=== PATIENT | female | born 1950 | race Caucasian/White ===

== ENCOUNTER → 2016-11-27 | Outpatient (REF) | payer MEDICARE, OTHER, BC ==
[~2016-11-27] MED LIST: /AMLO25TA PO; /BENA20TA PO; /BUSP5TA PO; /CLON1TA PO; /MELO7TA PO; ACET50TA PO; ACET65TA OR; ACET65TA PO; ATEN50TA2 PO; BUSP10TA PO; CATA0.1T PO; CEPH500C PO; CLAR10CA3 PO; CLARITAN PO; CLEO300C PO; CLIN300C PO; COLA50CA3 PO; EUCECRE2 TOP; FLON0.05; KEFL500C OR; LEVO75TA3 PO; LEVOTHROID PO; LOTR10CA2 PO; LOTREL PO; MELOPOW PO; MOME50SP; MULTTAB4 PO; NASONEX INH; NYSTATIN TD; PRIL40CA PO; TRIAMCINOLONE TD; TYLENOL PO; VIACTIV PO; VIT D 2000 PO; VITAD1000T PO; [UNRECOGNIZED DRUG - OTHER] PO; potassium PO
[2016-11-27 12:11] LABS: MEAN CORPUSCULAR HEMOGLOBIN 28.8 pg (27.0-33.0); MEAN CORPUSCULAR HGB CONC 34.4 g/dl (32.0-36.5); MEAN CORPUSCULAR VOLUME 83.5 fl (80.0-96.0); RED CELL DISTRIBUTION WIDTH 14.1 % (11.5-14.5); WHITE BLOOD COUNT 5.8 K/mm3 (4.0-10.0)
[2016-11-27 12:34] LABS: ALBUMIN 3.7 GM/DL (3.2-5.2); ALBUMIN/GLOBULIN RATIO 1.42 (1.00-1.93); BILIRUBIN,TOTAL 0.5 MG/DL (0.2-1.0); CREATININE FOR GFR 1.05 MG/DL (0.55-1.02); FREE T4 1.21 NG/DL (0.76-1.46); GLOMERULAR FILTRATION RATE 56.2 (>45); POTASSIUM SERUM 4.4 MEQ/L (3.5-5.1); TOTAL PROTEIN 6.3 GM/DL (6.4-8.2)
== END ==
LOC: M SFHCPLAZ 09:04
PROVIDERS: ATTEND Family Medicine
DX: Z95.2 Presence of prosthetic heart valve (principal); R73.03 Prediabetes; E03.9 Hypothyroidism, unspecified; E78.2 Mixed hyperlipidemia; E55.9 Vitamin D deficiency, unspecified; E53.8 Deficiency of other specified B group vitamins
CPT/HCPCS: 36415; 80053; 80061; 82306; 82607; 83036; 84439; 84443; 85027; G0463

== ENCOUNTER → 2017-03-30 | Outpatient (REF) | payer MEDICARE, OTHER, BC ==
[2017-03-30 13:21] LABS: CALCIUM LEVEL 10.2 MG/DL (8.8-10.2); CREATININE FOR GFR 1.11 MG/DL (0.55-1.02); GLOMERULAR FILTRATION RATE 52.7 (>45); POTASSIUM SERUM 4.2 MEQ/L (3.5-5.1)
== END ==
LOC: M SFHCADAM 10:45
PROVIDERS: ATTEND Family Medicine
DX: E11.9 Type 2 diabetes mellitus without complications (principal)

== ENCOUNTER → 2017-05-03 | Outpatient (CLI) | payer MEDICARE, OTHER, BC ==
--- NOTE | 2017-05-03 12:09 | REP ---
BILATERAL SCREENING DIGITAL MAMMOGRAM: The patient has a history of left breast lumpectomy positive for carcinoma and was treated with chemoradiation. There are no palpable abnormalities or other breast complaints. The patient states she/he had a clinical breast exam in December 26, 2016. Comparison is 04/17/2012. The breast parenchyma is mildly dense, unchanged. There is a chronic stable surgical scar laterally in the left breast, unchanged. There are benign calcifications. There has been no interval development of masses, areas of structural distortion or clusters of microcalcifications typical of malignancy. IMPRESSION: There is no evidence of malignancy. BIRADS category 2 benign findings. The patient should have a repeat mammogram in 1 year. This mammogram was interpreted with the aid of an FDA-approved computer-aided detection system. A. Negative x-ray reports should not delay biopsy if a dominant or clinically suspicious mass is present. B. Not all breast cancers are not identified by x-ray. C. Adenosis and dense breasts may obscure an underlying neoplasm. The patient letter M1. Signed by Jay Andrews MD 05/03/2017 02:41 P
== END ==
LOC: M RAD 11:01
PROVIDERS: ATTEND Obstetrics & Gynecology
DX: Z12.31 Encounter for screening mammogram for malignant neoplasm of breast (principal); Z85.3 Personal history of malignant neoplasm of breast; Z92.3 Personal history of irradiation

== ENCOUNTER → 2017-09-18 | Outpatient (REF) | payer MEDICARE, OTHER, BC | LOC: M LAB REF 16:26 | DX: C44.629 Squamous cell carcinoma of skin of left upper limb, including shoulder (principal) | CPT/HCPCS: 88305 ==

== ENCOUNTER → 2017-12-06 | Outpatient (REF) | payer MEDICARE, OTHER, BC ==
[2017-12-06 13:23] LABS: HEMATOCRIT 38.3 % (36.0-47.0); HEMOGLOBIN 12.3 g/dl (12.0-15.5); MEAN CORPUSCULAR HEMOGLOBIN 26.9 pg (27.0-33.0); MEAN CORPUSCULAR HGB CONC 32.1 g/dl (32.0-36.5); MEAN CORPUSCULAR VOLUME 83.8 fl (80.0-96.0); PLATELET COUNT, AUTOMATED 216 10^3/uL (150-450); RED BLOOD COUNT 4.57 10^6/uL (4.00-5.40); RED CELL DISTRIBUTION WIDTH 14.2 % (11.5-14.5)
[2017-12-06 13:51] LABS: ALBUMIN 3.9 GM/DL (3.2-5.2); ALBUMIN/GLOBULIN RATIO 1.39 (1.00-1.93); ALKALINE PHOSPHATASE 76 U/L (45-117); ALT/SGPT 25 U/L (12-78); ANION GAP 6 MEQ/L (8-16); AST/SGOT 22 U/L (7-37); BILIRUBIN,TOTAL 0.6 MG/DL (0.2-1.0); BLOOD UREA NITROGEN 14 MG/DL (7-18); CALCIUM LEVEL 9.7 MG/DL (8.8-10.2); CARBON DIOXIDE LEVEL 30 MEQ/L (21-32); CHLORIDE LEVEL 108 MEQ/L (98-107); CHOLESTEROL LEVEL 130 MG/DL (<200); CHOLESTEROL RISK RATIO 2.765 (<5); CREATININE FOR GFR 0.99 MG/DL (0.55-1.30); FREE T4 1.13 NG/DL (0.76-1.46); GLOMERULAR FILTRATION RATE 59.9 (>45); GLUCOSE, FASTING 78 MG/DL (70-100); HDL CHOLESTEROL 47 MG/DL (>40); NON-HDL-C 83 MG/DL; POTASSIUM SERUM 3.9 MEQ/L (3.5-5.1); SODIUM LEVEL 144 MEQ/L (136-145); TOTAL PROTEIN 6.7 GM/DL (6.4-8.2); TRIGLYCERIDES LEVEL 120 MG/DL (<150)
[2017-12-06 14:37] LABS: ESTIMATED AVERAGE GLUCOSE 117 MG/DL (60-110); HEMOGLOBIN A1c 5.7 %
== END ==
LOC: M SFHCADAM 12:31
DX: E03.9 Hypothyroidism, unspecified (principal); G25.81 Restless legs syndrome; E11.9 Type 2 diabetes mellitus without complications
CPT/HCPCS: 84443

== ENCOUNTER → 2018-11-25 | Outpatient (CLI) | payer MEDICARE, BC, OTHER ==
[~2018-11-25] MED LIST changes: -/AMLO25TA PO; -/BENA20TA PO; -/CLON1TA PO; -/MELO7TA PO; -ACET50TA PO; +CLON-412 PO; +LOTE1TAB PO; +MAPA500T17 PO; +MOBI4TAB PO; +NORV2TAB PO
[2018-11-25 19:05] LABS: HEMATOCRIT 39.7 % (36.0-47.0); HEMOGLOBIN 12.8 g/dl (12.0-15.5); MEAN CORPUSCULAR HEMOGLOBIN 27.6 pg (27.0-33.0); MEAN CORPUSCULAR HGB CONC 32.2 g/dl (32.0-36.5); MEAN CORPUSCULAR VOLUME 85.6 fl (80.0-96.0); PLATELET COUNT, AUTOMATED 217 10^3/uL (150-450); RED BLOOD COUNT 4.64 10^6/uL (4.00-5.40); WHITE BLOOD COUNT 6.3 10^3/uL (4.0-10.0)
[2018-11-25 20:03] LABS: ALBUMIN 4.1 GM/DL (3.2-5.2); ALT/SGPT 18 U/L (12-78); BILIRUBIN,TOTAL 0.6 MG/DL (0.2-1.0); BLOOD UREA NITROGEN 22 MG/DL (7-18); CALCIUM LEVEL 10.2 MG/DL (8.8-10.2); CARBON DIOXIDE LEVEL 31 MEQ/L (21-32); CHLORIDE LEVEL 106 MEQ/L (98-107); CHOLESTEROL LEVEL 135 MG/DL (<200); CHOLESTEROL RISK RATIO 2.812 (<5); CREATININE FOR GFR 0.97 MG/DL (0.55-1.30); FREE T4 1.28 NG/DL (0.76-1.46); GLOMERULAR FILTRATION RATE > 60.0 (>45); GLUCOSE, FASTING 94 MG/DL (70-100); HDL CHOLESTEROL 48 MG/DL (>40); LDL CHOLESTEROL 59 MG/DL (<100); NON-HDL-C 87 MG/DL; POTASSIUM SERUM 4.4 MEQ/L (3.5-5.1); SODIUM LEVEL 141 MEQ/L (136-145); THYROID STIMULATING HORMONE 0.854 uIU/ML (0.358-3.740); TOTAL PROTEIN 6.5 GM/DL (6.4-8.2); TRIGLYCERIDES LEVEL 142 MG/DL (<150)
[2018-11-25 21:37] LABS: HEMOGLOBIN A1c 5.8 %
== END ==
LOC: M SMT 11:39
PROVIDERS: ATTEND Family Medicine
DX: I33.0 Acute and subacute infective endocarditis (principal); E78.2 Mixed hyperlipidemia; E03.9 Hypothyroidism, unspecified; E11.9 Type 2 diabetes mellitus without complications
CPT/HCPCS: 36415; 80053; 80061; 83036; 84439; 84443; 85027; G0463

== ENCOUNTER → 2019-03-11 | Outpatient (REF) | payer MEDICARE, BC, OTHER ==
[2019-03-11 19:42] LABS: APPEARANCE, URINE CLOUDY (CLEAR); BACTERIA, URINE AUTO NEGATIVE (NEGATIVE); BILIRUBIN, URINE AUTO NEGATIVE (NEGATIVE); BLOOD, URINE BLOOD 2+ (NEGATIVE); COLOR, URINE AMBER (YELLOW); GLUCOSE, URINE (UA) AUTO NEGATIVE (NEGATIVE); KETONE, URINE AUTO NEGATIVE (NEGATIVE); LEUKOCYTE ESTERASE, URINE AUTO 3+ (NEGATIVE); MUCUS, URINE SMALL (NEGATIVE); NITRITE, URINE AUTO NEGATIVE (NEGATIVE); PROTEIN, URINE AUTO 2+ mg/dL (NEGATIVE); RBC, URINE AUTO 34 /HPF (0-3); SPECIFIC GRAVITY URINE AUTO 1.019 (1.002-1.035); SQUAMOUS EPITHELIAL CELL UR AU 2 /HPF (0-6); TRANSITIONAL EPITHELIAL AUTO 1 /HPF; UROBILINOGEN, URINE AUTO 0.2 mg/dL (0.0-2.0); WBC, URINE AUTO TNTC /HPF (0-3)
== END ==
LOC: M LAB REF 17:17
PROVIDERS: ATTEND Obstetrics & Gynecology
DX: N39.0 Urinary tract infection, site not specified (principal)

== ENCOUNTER → 2019-03-19 | Outpatient (REF) | payer MEDICARE, BC, OTHER ==
[2019-03-19 13:40] LABS: APPEARANCE, URINE HAZY (CLEAR); BACTERIA, URINE AUTO NEGATIVE (NEGATIVE); BILIRUBIN, URINE AUTO NEGATIVE (NEGATIVE); BLOOD, URINE BLOOD NEGATIVE (NEGATIVE); COLOR, URINE YELLOW (YELLOW); GLUCOSE, URINE (UA) AUTO NEGATIVE (NEGATIVE); KETONE, URINE AUTO NEGATIVE (NEGATIVE); LEUKOCYTE ESTERASE, URINE AUTO TRACE (NEGATIVE); MUCUS, URINE SMALL (NEGATIVE); NITRITE, URINE AUTO NEGATIVE (NEGATIVE); PROTEIN, URINE AUTO NEGATIVE (NEGATIVE); RBC, URINE AUTO 1 /HPF (0-3); SPECIFIC GRAVITY URINE AUTO 1.016 (1.002-1.035); SQUAMOUS EPITHELIAL CELL UR AU 2 /HPF (0-6); UROBILINOGEN, URINE AUTO 0.2 mg/dL (0.0-2.0); WBC, URINE AUTO 7 /HPF (0-3)
== END ==
LOC: M LAB REF 12:34
PROVIDERS: ATTEND Obstetrics & Gynecology
DX: N39.0 Urinary tract infection, site not specified (principal); N30.01 Acute cystitis with hematuria

== ENCOUNTER 2019-04-03 15:42 | Observation (INO) | payer MEDICARE, BC, OTHER ==
[~2019-04-03] VITALS: Ht 160 cm; Wt 95.5 kg
[2019-04-03] MEDS: busPIRone 5 MG TAB PO SCH ×2 (09:00→23:23)
[2019-04-03 16:37] LABS: BASO % 0.5 % (0.0-1.0); EOS # 0.1 10^3/uL (0.0-0.5); EOS % 1.6 % (0.0-3.0); HEMATOCRIT 35.7 % (36.0-47.0); HEMOGLOBIN 11.5 g/dl (12.0-15.5); LYMPH # 0.8 10^3/uL (1.5-5.0); LYMPH % 13.9 % (24.0-44.0); MEAN CORPUSCULAR HEMOGLOBIN 26.9 pg (27.0-33.0); MEAN CORPUSCULAR HGB CONC 32.2 g/dl (32.0-36.5); MEAN CORPUSCULAR VOLUME 83.6 fl (80.0-96.0); MONO # 0.8 10^3/uL (0.0-0.8); MONO % 14.1 % (0.0-5.0); NEUTROPHILS % 69.6 % (36.0-66.0); PLATELET COUNT, AUTOMATED 138 10^3/uL (150-450); RED BLOOD COUNT 4.27 10^6/uL (4.00-5.40); WHITE BLOOD COUNT 5.8 10^3/uL (4.0-10.0)
[2019-04-03 16:57] LABS: BLOOD UREA NITROGEN 13 MG/DL (7-18); CALCIUM LEVEL 9.8 MG/DL (8.8-10.2); CARBON DIOXIDE LEVEL 28 MEQ/L (21-32); CHLORIDE LEVEL 101 MEQ/L (98-107); CREATININE FOR GFR 0.86 MG/DL (0.55-1.30); GLOMERULAR FILTRATION RATE > 60.0 (>45); GLUCOSE, FASTING 98 MG/DL (70-100); POTASSIUM SERUM 4.1 MEQ/L (3.5-5.1); SODIUM LEVEL 138 MEQ/L (136-145)
[2019-04-03 16:59] LABS: ERYTHROCYTE SEDIMENTATION RATE 65 mm/hr (0-30)
[2019-04-03] MEDS ORDERED: HYDR-3713 PO (17:38)
[2019-04-03] MEDS ORDERED: INDA125TA PO (17:38)
[2019-04-03] MEDS ORDERED: PRESCAP PO (17:38)
[2019-04-03] MEDS ORDERED: ASPI81CH10 (17:38)
[2019-04-03] MEDS ORDERED: VICT18IN2 SC (17:38)
[2019-04-03] MEDS ORDERED: ATOR1TAB21 PO (17:38)
[2019-04-03] MEDS ORDERED: NS 1,000 ML IV ONE (18:00)
[2019-04-03] MEDS ORDERED: MORPHINE 4 MG/ML 1ML VIAL/SYRINGE (J2270) IV ONE (18:00)
[2019-04-03] MEDS ORDERED: ISOVUE-370 76% 100ML VIAL (Q9967) As Ordered ONE (18:06)
--- NOTE | 2019-04-03 20:01 | REPVR ---
PROCEDURE INFORMATION: Exam: CT Left Lower Extremity With Contrast, Ankle Exam date and time: 04/03/2019 7:17 PM Clinical history: 68 years old, female; Condition or disease; Other: Cellulitis; Additional info: Cellulitis, worsening after po abx, cant wb TECHNIQUE: Imaging protocol: CT of the Left lower extremity with intravenous contrast was performed. Exam focused on the ankle. Radiation optimization: All CT scans at this facility use at least one of these dose optimization techniques: automated exposure control; mA and/or kV adjustment per patient size (includes targeted exams where dose is matched to clinical indication); or iterative reconstruction. Contrast material: ISOVUE 370; Contrast volume: 100 ml; Contrast route: IV; COMPARISON: No relevant prior studies available. FINDINGS: Bones/joints: Normal. No acute fracture or dislocation. Soft tissues: Diffuse subcutaneous edema most pronounced laterally at the distal lower leg, ankle, and foot associated with some skin thickening, findings which may indicate the presence of cellulitis. No focal abscess demonstrated. IMPRESSION: Diffuse subcutaneous edema most pronounced laterally at the distal lower leg, ankle, and foot associated with some skin thickening, findings which may indicate the presence of cellulitis. No focal abscess demonstrated. Electronically signed by: Walker Lee On 04/03/2019 20:01:55 PM
--- NOTE | 2019-04-03 20:05 | REPVR ---
PROCEDURE INFORMATION: Exam: CT Left Lower Extremity With Contrast, Foot Exam date and time: 04/03/2019 7:17 PM Clinical history: 68 years old, female; Condition or disease; Other: Cellulitis; Additional info: Cellulitis, worsening after po abx, cant wb TECHNIQUE: Imaging protocol: CT of the Left lower extremity with intravenous contrast was performed. Exam focused on the foot. Radiation optimization: All CT scans at this facility use at least one of these dose optimization techniques: automated exposure control; mA and/or kV adjustment per patient size (includes targeted exams where dose is matched to clinical indication); or iterative reconstruction. Contrast material: ISOVUE 370; Contrast volume: 100 ml; Contrast route: IV; COMPARISON: No relevant prior studies available. FINDINGS: Bones/joints: Degenerative arthropathy of the midfoot with cystic changes demonstrated in the proximal metatarsals, medial, intermediate, and lateral cuneiforms. Marked degenerative changes in the first metatarsal phalangeal joint. Status post ORIF distal portion of the first metatarsal. Degenerative changes in the interphalangeal joints. Soft tissues: Diffuse soft tissue edema demonstrated in the foot with skin thickening consistent with cellulitis. No focal abscess demonstrated. IMPRESSION: Diffuse soft tissue edema demonstrated in the foot with skin thickening consistent with cellulitis. No focal abscess demonstrated. Electronically signed by: Walker Lee On 04/03/2019 20:05:04 PM
[2019-04-03] MEDS ORDERED: ceFAZolin SOD 1 GM in D5W MINI-BAG PLUS 50 ML IV ONE (20:45)
--- NOTE | 2019-04-03 20:54 | HPEPDOC ---
[facility] Medical History & Physical Date of Admission Apr 03, 2019 Date of Service: Apr 03, 2019 Primary Care Physician: Endy Garcia MD Attending Physician: Endy Garcia MD History and Physical TIME OF SERVICE: 9:05 PM CHIEF COMPLAINT: Left ankle pain HISTORY OF PRESENT ILLNESS: This is a 68 old female who reports being "bitten by something" on her right ankle about 5 days ago. Two days later she developed a fever with a temperature of 100.3 and went to [facility]. She received Rocephin, had an ultrasound that ruled out DVT and x-rays that were unremarkable. She was sent home with clindamycin but returned the next day because she had problems walking; shortly thereafter, she was sent home again. Today she presented to because of worsening left ankle redness, pain and swelling. She reports having difficulties going up and down her stairs despite trying to use her father's cane. She has lymphedema affecting the arm and has problems using crutches. 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 HOME MEDICATIONS: Please see below. PHYSICAL EXAMINATION: VITAL SIGNS: Please see below. GENERAL APPEARANCE: Well-nourished, well-developed, not in apparent distress HEENT: Normocephalic, atraumatic, mucous members moist and pink CARDIOVASCULAR: Regular rate and rhythm. No murmurs, rubs or gallops. Radial pulses are intact LUNGS: Clear auscultation bilaterally on room air ABDOMEN: Soft and nontender on palpation. Bowel sounds are present MUSCULOSKELETAL: Range of motion is intact in all 4 extremities except for left ankle were range of motion is limited due to swelling INTEGUMENT: Lateral aspect of right ankle is read the ankle is swollen and tender on palpation. NEUROLOGICAL: Cranial nerves II-12 are grossly intact. Speech is not dysarthric PSYCHIATRIC: Alert and oriented to person, place and time, able to understand and follow commands LABORATORY DATA: See below. IMAGING: CT of the left foot "IMPRESSION: Diffuse soft tissue edema demonstrated in the foot with skin thickening consistent with cellulitis. No focal abscess demonstrated. CT of the left ankle "IMPRESSION: Diffuse subcutaneous edema most pronounced laterally at the distal lower leg, ankle, and foot associated with some skin thickening, findings which may indicate the presence of cellulitis. No focal abscess demonstrated." MICROBIOLOGY: Please see below. ASSESSMENT: Ms. Almodovar is a 68 old female with a PMH of breast cancer, chronic lymphedema, history of bacterial endocarditis, hypothyroidism, and history of mitral valve repair, who will be admitted for treatment of left ankle cellulitis because she is unable to walk. PLAN: 1. Left Ankle Cellulitis Predisposing factor includes obesity WBC # wnl ESR and CRP are elevated The only SIRS criteria she has is a fever. Per d/w ED provider US done at [facility] was negative for DVT CT of the ankle and foot were negative for abscess, but confirmed the presence of findings consistent with cellulitis Plan: admit to [facility] bc the patient has difficulties ambulating / fall precautions / PT eval to determine if she needs a walking aide / c/w Cefazoline ( antibiotic day #2) 2. Diabetes Patient reports her previous A1c was around 6.8. Per chart review, A1c was 5.8 in November of this year Plan: diabetic diet / f/u accuchecks AC & HS / continue Victoza 3. Hypothyroidism Plan: Continue home meds 4.Obesity - if BMI >35 + DM = candidate for bariatric surgery Plan: can f/u w PCP for STOP BANG questionnaire marketing intelligence manager consult & referral for Bariatric surgery / recommend cardiovascular exercise for 40 min 4-5 days a week once able to walk DVT prophylaxis Lovenox. Disposition pending clinical course Vital Signs Vital Signs Date Time Temp Pulse Resp B/P (MAP) Pulse Ox O2 Delivery O2 Flow Rate FiO2 04/03/19 19:36 18 04/03/19 17:00 04/03/19 16:52 99.4 04/03/19 15:42 89 98 Room Air Laboratory Data Labs 24H Laboratory Tests 2 04/03/19 16:27: Immature Granulocyte % (Auto) 0.3, White Blood Count 5.8, Red Blood Count 4.27, Hemoglobin 11.5L, Hematocrit 35.7L, Mean Corpuscular Volume 83.6, Mean Corpuscular Hemoglobin 26.9L, Mean Corpuscular Hemoglobin Concent 32.2, Red Cell Distribution Width 14.3, Platelet Count 138L, Neutrophils (%) (Auto) 69.6H, Lymphocytes (%) (Auto) 13.9L, Monocytes (%) (Auto) 14.1H, Eosinophils (%) (Auto) 1.6, Basophils (%) (Auto) 0.5, Neutrophils # (Auto) 4.0, Lymphocytes # (Auto) 0.8L, Monocytes # (Auto) 0.8, Eosinophils # (Auto) 0.1, Basophils # (Auto) 0.0, Nucleated Red Blood Cells % (auto) 0.0, Erythrocyte Sedimentation Rate 65H, Anion Gap 9, Glomerular Filtration Rate > 60.0, Blood Urea Nitrogen 13, Creatinine 0.86, Sodium Level 138, Potassium Level 4.1, Chloride Level 101, Carbon Dioxide Level 28, Calcium Level 9.8, C-Reactive Protein, Quantitative 17.30H CBC/BMP Laboratory Tests 04/03/19 16:27 Red Blood Count 4.27, Mean Corpuscular Volume 83.6, Mean Corpuscular Hemoglobin 26.9 L, Mean Corpuscular Hemoglobin Concent 32.2, Red Cell Distribution Width 14.3, Neutrophils (%) (Auto) 69.6 H, Lymphocytes (%) (Auto) 13.9 L, Monocytes (%) (Auto) 14.1 H, Eosinophils (%) (Auto) 1.6, Basophils (%) (Auto) 0.5, Neutrophils # (Auto) 4.0, Lymphocytes # (Auto) 0.8 L, Monocytes # (Auto) 0.8, Eosinophils # (Auto) 0.1, Basophils # (Auto) 0.0, Calcium Level 9.8 Microbiology Microbiology 04/03/19 Blood Culture, Received Pending 04/03/19 Blood Culture, Received Pending 04/03/19 Blood Culture, Received Pending Home Medications Scheduled Aspirin (Aspir 81) 81 Mg Tablet.dr, 81 MG PO QHS Atorvastatin Calcium (Atorvastatin Calcium) 20 Mg Tablet, 20 MG PO DAILY Buspirone HCl (Buspirone HCl) 5 Mg Tablet, 5 MG PO BID Cholecalciferol (Vitamin D3) (Vitamin D3) 1,000 Unit Capsule, 2,000 UNIT PO DAILY Clindamycin HCl (Clindamycin HCl) 300 Mg Capsule, 300 MG PO QID DAY 2 OF 10 DAY COURSE Cyanocobalamin (Vitamin B-12) (Vitamin B-12) 1,000 Mcg Capsule, 1,000 MCG PO DAILY Fluticasone Propionate (Fluticasone Propionate) 16 Gm [place].susp, 2 SPRAY NARES DAILY Indapamide (Indapamide) 1.25 Mg Tablet, 1.25 MG PO QHS Levothyroxine Sodium (Synthroid) 75 Mcg Tablet, 75 MCG PO DAILY Liraglutide (Victoza 3-Travis) 0.6 Mg/0.1 Ml Pen.injctr, 1.2 MG SC DAILY Omeprazole (Omeprazole) 40 Mg Capsule.dr, 40 MG PO BID Vit A/Vit C/Vit E/Zinc/Copper (Preservision Areds Softgel) 1 Each Capsule, 1 CAP PO BID Scheduled PRN Hydrocodone/Acetaminophen (Hydrocodone-Acetamin 5-325 mg) 1 Each Tablet, 1 TAB PO Q6H PRN for PAIN Allergies Coded Allergies: Sulfa (Sulfonamide Antibiotics) (Verified Allergy, Intermediate, HIVES, 04/03/19) A-FIB/CHADSVASC A-FIB History Current/History of A-Fib/PAF?: No Current PO Anticoag Therapy: No AMRK VELASQUEZ MD Apr 03, 2019 20:54
[2019-04-03] MEDS: INDAPAMIDE 1.25MG TABLET PO SCH (21:00)
[2019-04-03] MEDS ORDERED: CLIN300C5 PO (21:38)
[2019-04-03] MEDS ORDERED: SYNT75TA PO (21:38)
[2019-04-03] MEDS ORDERED: BUSP5TA PO (21:38)
[2019-04-03] MEDS ORDERED: FLUTISP NARES (21:38)
[2019-04-03] MEDS ORDERED: OMEP-221 PO (21:38)
[2019-04-03] MEDS ORDERED: D3 H10002 PO (21:38)
[2019-04-03] MEDS ORDERED: ASPI81TA85 PO (21:38)
[2019-04-03] MEDS ORDERED: B-12100010 PO (21:41)
[2019-04-03] MEDS ORDERED: IBUPROFEN 800 MG TAB PO ONE (22:15)
[2019-04-03] MEDS ORDERED: LIDOCAINE 4% CREAM 5GM (LMX4) TOP PRN (22:15)
[2019-04-03] MEDS: ASPIRIN 81 MG ENTERIC TAB PO SCH (23:22)
[2019-04-03] MEDS: OCUVITE 1 TAB PO SCH (23:23)
[2019-04-03] MEDS: PANTOPRAZOLE 40MG TAB (PROTONIX) PO SCH (23:23)
[2019-04-03] MEDS: NORCO, ANEXSIA 5/325MG TABLET (HYDROcodone/ACETAMINOPHEN) PO PRN (23:26)
[2019-04-03 23:44] VITALS: BP 159/85
--- NOTE | 2019-04-04 00:10 | ECGEPIP ---
[facility] - ED Test Date: 2019-04-03 Pat Name: UJAN NUGENT Department: Room: - Gender: Female [employer] Attendant: jhonny : [id number] Requested By: MARTHA Yeboah PA-C Order Number: [id number] Reading MD: Fran Mancilla Measurements Intervals [place] Rate: 91 P: 76 MO: 171 QRS: 99 QRSD: 95 T: 46 QT: 373 QTc: 460 Interpretive Statements SINUS RHYTHM BORDERLINE RIGHT AXIS DEVIATION MINIMAL ST DEPRESSION POOR R WAVE PROGRESSION NO PRIORS FOR COMPARISON Electronically Signed on 04-04-2019 0:10:15 EDT by Fran Mancilla
[2019-04-04] MEDS: ACETAMINOPHEN 650MG ER TAB (TYLENOL ARTHRITIS) PO PRN ×2 (06:03→22:35)
[2019-04-04 06:50] LABS: HEMATOCRIT 31.3 % (36.0-47.0); HEMOGLOBIN 10.3 g/dl (12.0-15.5); MEAN CORPUSCULAR HEMOGLOBIN 26.9 pg (27.0-33.0); MEAN CORPUSCULAR HGB CONC 32.9 g/dl (32.0-36.5); MEAN CORPUSCULAR VOLUME 81.7 fl (80.0-96.0); PLATELET COUNT, AUTOMATED 134 10^3/uL (150-450); RED BLOOD COUNT 3.83 10^6/uL (4.00-5.40); WHITE BLOOD COUNT 5.1 10^3/uL (4.0-10.0)
[2019-04-04 07:15] VITALS: BP 132/80
[2019-04-04 07:19] LABS: BLOOD UREA NITROGEN 12 MG/DL (7-18); CALCIUM LEVEL 9.9 MG/DL (8.8-10.2); CARBON DIOXIDE LEVEL 31 MEQ/L (21-32); CHLORIDE LEVEL 105 MEQ/L (98-107); CREATININE FOR GFR 0.97 MG/DL (0.55-1.30); GLOMERULAR FILTRATION RATE > 60.0 (>45); GLUCOSE, FASTING 87 MG/DL (70-100); POTASSIUM SERUM 3.4 MEQ/L (3.5-5.1); SODIUM LEVEL 141 MEQ/L (136-145)
--- NOTE | 2019-04-04 08:47 | IPNPDOC ---
Subjective Date Seen The patient was seen on 04/04/19. Subjective Chief Complaint/HPI Foot pain improving. Redness much improved. foot still swollen Constitutional: Denies: Chills, Fever Pulmonary: Denies: Dyspnea, Cough Cardiovascular: Denies: Chest Pain, Palpitations Gastrointestinal: Reports: Diarrhea; Denies: Nausea, Vomiting, Abdominal Pain, Constipation Objective Physical Examination General Exam: Positive: Alert, No Acute Distress Chest Exam: Positive: Clear to auscultation, Normal air movement; Negative: Rales, Rhonchi, Wheezing Heart Exam: Positive: Rate Normal, Regular Rhythm Abdomen Exam: Positive: Normal bowel sounds, Soft; Negative: Tenderness Extremity Exam: Positive: Edema (2+ pedal edema left foot.), Other (Minimal erythema dorsum of foot. No warmth . Minimal tenderenss) Assessment /Plan Problems (1) Cellulitis of left foot Status: Acute Response to Treatment: Improving Problem Text: Continue Ancef for now as her cellulitis seems to be improving on this B/C pending CT ankle: Diffuse subcutaneous edema most pronounced laterally at the distal l ower leg, ankle, and foot associated with some skin thickening, findings which may indicate the presence of cellulitis. No focal abscess demonstrated. CT foot: Diffuse soft tissue edema demonstrated in the foot with skin thickening consistent with cellulitis. No focal abscess demonstrated (2) Diabetes type 2, controlled Status: Chronic Response to Treatment: Stable Plan/VTE VTE Prophylaxis Ordered?: Yes (Lovenox) VS[facility] Vital Signs/I&O Vital Signs Date Time Temp Pulse Resp B/P (MAP) Pulse Ox O2 Delivery O2 Flow Rate FiO2 04/04/19 07:15 97.7 78 20 132/80 (97) 98 04/03/19 15:42 Room Air I&O- Last 24 Hours up to 6 AM 04/04/19 06:00 Intake Total 1890 ml Balance 1890 ml Laboratory Data 24H LABS Laboratory Tests 2 04/03/19 16:27: Immature Granulocyte % (Auto) 0.3, White Blood Count 5.8, Red Blood Count 4.27, Hemoglobin 11.5L, Hematocrit 35.7L, Mean Corpuscular Volume 83.6, Mean Corpus cular Hemoglobin 26.9L, Mean Corpuscular Hemoglobin Concent 32.2, Red Cell Distribution Width 14.3, Platelet Count 138L, Neutrophils (%) (Auto) 69.6H, Lymphocytes (%) (Auto) 13.9L, Monocytes (%) (Auto) 14.1H, Eosinophils (%) (Auto) 1.6, Basophils (%) (Auto) 0.5, Neutrophils # (Auto) 4.0, Lymphocytes # (Auto) 0.8L, Monocytes # (Auto) 0.8, Eosinophils # (Auto) 0.1, Basophils # (Auto) 0.0, Nucleated Red Blood Cells % (auto) 0.0, Erythrocyte Sedimentation Rate 65H, Anion Gap 9, Glomerular Filtration Rate > 60.0, Blood Urea Nitrogen 13, Creatinine 0.86, Sodium Level 138, Potassium Level 4.1, Chloride Level 101, Carbon Dioxide Level 28, Calcium Level 9.8, C-Reactive Protein, Quantitative 17.30H 04/03/19 23:46: Bedside Glucose (Misc Panel) 86 04/04/19 06:18: Nucleated Red Blood Cells % (auto) 0.0, Anion Gap 5L, Glomerular Filtration Rate > 60.0, Blood Urea Nitrogen 12, Creatinine 0.97, Sodium Level 141, Potassium Level 3.4L, Chloride Level 105, Carbon Dioxide Level 31, Calcium Level 9.9 CBC/BMP Laboratory Tests 04/03/19 16:27 Red Blood Count 4.27, Mean Corpuscular Volume 83.6, Mean Corpuscular Hemoglobin 26.9 L, Mean Corpuscular Hemoglobin Concent 32.2, Red Cell Distribution Width 14.3, Neutrophils (%) (Auto) 69.6 H, Lymphocytes (%) (Auto) 13.9 L, Monocytes (%) (Auto) 14.1 H, Eosinophils (%) (Auto) 1.6, Basophils (%) (Auto) 0.5, Neutrophils # (Auto) 4.0, Lymphocytes # (Auto) 0.8 L, Monocytes # (Auto) 0.8, Eosinophils # (Auto) 0.1, Basophils # (Auto) 0.0, Calcium Level 9.8 04/04/19 06:18 Red Blood Count 3.83 L, Mean Corpuscular Volume 81.7, Mean Corpuscular Hemoglobin 26.9 L, Mean Corpuscular Hemoglobin Concent 32.9, Red Cell Distribution Width 14.3, Calcium Level 9.9 Microbiology Microbiology 04/03/19 Blood Culture, Received Pending 04/03/19 Blood Culture, Received Pending 04/03/19 Blood Culture, Received Pending MI HERNANDES PA-C Apr 04, 2019 08:47
[2019-04-04] MEDS ORDERED: ceFAZolin SOD 2 GM in IV 1 EA IV ONE (09:00)
[2019-04-04] MEDS: FLUTICASONE PROP 0.05% NASAL SPRAY 16 GM (FLONASE) NARES SCH (09:00)
[2019-04-04] MEDS: VITAMIN D 1,000 INTERNATIONAL UNITS TABLET PO SCH (09:36)
[2019-04-04] MEDS: PANTOPRAZOLE 40MG TAB (PROTONIX) PO SCH ×2 (09:36→21:24)
[2019-04-04] MEDS: ENOXAPARIN 40 MG/0.4 ML SYRINGE (J1650) SC SCH (09:36)
[2019-04-04] MEDS: busPIRone 5 MG TAB PO SCH ×2 (09:36→21:24)
[2019-04-04] MEDS: POTASSIUM CHLORIDE 10 MEQ SR TABLET PO SCH ×2 (09:36→12:09)
[2019-04-04] MEDS: ceFAZolin SOD 1 GM in D5W MINI-BAG PLUS 50 ML IV SCH ×2 (09:36→17:24)
[2019-04-04] MEDS: CYANOCOBALAMIN 500 MCG TAB PO SCH (09:37)
[2019-04-04] MEDS: OCUVITE 1 TAB PO SCH ×2 (09:37→21:24)
[2019-04-04] MEDS: LEVOTHYROXINE 75MCG TABLET (0.075MG) PO SCH (09:37)
[2019-04-04] MEDS: ATORVASTATIN 20 MG TAB PO SCH (09:37)
[2019-04-04] MEDS: NORCO, ANEXSIA 5/325MG TABLET (HYDROcodone/ACETAMINOPHEN) PO PRN (17:24)
[2019-04-04 21:15] VITALS: BP 131/80
[2019-04-04] MEDS: ASPIRIN 81 MG ENTERIC TAB PO SCH (21:24)
[2019-04-04] MEDS: INDAPAMIDE 1.25MG TABLET PO SCH (21:25)
[2019-04-05] MEDS: ceFAZolin SOD 1 GM in D5W MINI-BAG PLUS 50 ML IV SCH ×3 (00:54→16:44)
[2019-04-05] MEDS: NORCO, ANEXSIA 5/325MG TABLET (HYDROcodone/ACETAMINOPHEN) PO PRN ×3 (01:22→15:24)
[2019-04-05 06:11] VITALS: BP 143/85
[2019-04-05 06:48] LABS: HEMATOCRIT 31.3 % (36.0-47.0); HEMOGLOBIN 10.2 g/dl (12.0-15.5); MEAN CORPUSCULAR HEMOGLOBIN 26.6 pg (27.0-33.0); MEAN CORPUSCULAR HGB CONC 32.6 g/dl (32.0-36.5); MEAN CORPUSCULAR VOLUME 81.7 fl (80.0-96.0); PLATELET COUNT, AUTOMATED 139 10^3/uL (150-450); RED BLOOD COUNT 3.83 10^6/uL (4.00-5.40); WHITE BLOOD COUNT 4.1 10^3/uL (4.0-10.0)
[2019-04-05 07:19] LABS: BLOOD UREA NITROGEN 13 MG/DL (7-18); CALCIUM LEVEL 9.6 MG/DL (8.8-10.2); CARBON DIOXIDE LEVEL 28 MEQ/L (21-32); CHLORIDE LEVEL 106 MEQ/L (98-107); CREATININE FOR GFR 0.88 MG/DL (0.55-1.30); GLOMERULAR FILTRATION RATE > 60.0 (>45); GLUCOSE, FASTING 84 MG/DL (70-100); POTASSIUM SERUM 3.7 MEQ/L (3.5-5.1); SODIUM LEVEL 141 MEQ/L (136-145)
[2019-04-05] MEDS: FLUTICASONE PROP 0.05% NASAL SPRAY 16 GM (FLONASE) NARES SCH (09:00)
[2019-04-05] MEDS: VITAMIN D 1,000 INTERNATIONAL UNITS TABLET PO SCH (09:01)
[2019-04-05] MEDS: OCUVITE 1 TAB PO SCH ×2 (09:01→20:43)
[2019-04-05] MEDS: ENOXAPARIN 40 MG/0.4 ML SYRINGE (J1650) SC SCH (09:01)
[2019-04-05] MEDS: busPIRone 5 MG TAB PO SCH ×2 (09:01→20:43)
[2019-04-05] MEDS: CYANOCOBALAMIN 500 MCG TAB PO SCH (09:01)
[2019-04-05] MEDS: PANTOPRAZOLE 40MG TAB (PROTONIX) PO SCH ×2 (09:02→20:43)
[2019-04-05] MEDS: LEVOTHYROXINE 75MCG TABLET (0.075MG) PO SCH (09:02)
[2019-04-05] MEDS: ATORVASTATIN 20 MG TAB PO SCH (09:02)
[2019-04-05 15:28] VITALS: BP 142/86
--- NOTE | 2019-04-05 16:37 | IPNPDOC ---
Subjective Date Seen The patient was seen on 04/05/19. Subjective Chief Complaint/HPI improved LLE pain/swelling Constitutional: Denies: Chills, Fever Eyes: Denies: Pain ENT: Denies: Head Aches Skin: Denies: Rash Pulmonary: Denies: Dyspnea Cardiovascular: Denies: Chest Pain, Palpitations Gastrointestinal: Denies: Nausea, Vomiting Genitourinary: Denies: Dysuria Objective Physical Examination General Exam: Positive: Alert, No Acute Distress Chest Exam: Positive: Clear to auscultation, Normal air movement; Negative: Rales, Rhonchi, Wheezing Heart Exam: Positive: Rate Normal, Regular Rhythm Abdomen Exam: Positive: Normal bowel sounds, Soft; Negative: Tenderness Extremity Exam: Positive: Edema (2+ pedal edema left foot.), Other (Minimal erythema dorsum of foot. No warmth . Minimal tenderenss) Assessment /Plan Problems (1) Cellulitis of left foot Status: Acute Response to Treatment: Improving Problem Text: D2 cefazolin (failed outpx clinda po) 04/05 AF, WBC 4.1 (04/03 5.8), improved r/t/c/d 04/03 BCX3 NG 04/03 CRP/ESR CT ankle: Diffuse subcutaneous edema most pronounced laterally at the distal lower leg, ankle, and foot associated with some skin thickening, findings which may indicate the presence of cellulitis. No focal abscess demonstrated. CT foot: Diffuse soft tissue edema demonstrated in the foot with skin thickening consistent with cellulitis. No focal abscess demonstrated (2) Diabetes type 2, controlled Status: Chronic Response to Treatment: Stable Problem Text: AC TID BG 80-100 on SSLI (off HD hayes 1.2) Plan/VTE VTE Prophylaxis Ordered?: Yes (Lovenox) VS, I&O, 24H, Fishbone Vital Signs/I&O Vital Signs Date Time Temp Pulse Resp B/P (MAP) Pulse Ox O2 Delivery O2 Flow Rate FiO2 04/05/19 15:28 97.6 80 17 142/86 (104) 97 04/03/19 15:42 Room Air I&O- Last 24 Hours up to 6 AM 04/05/19 05:59 Intake Total 650 ml Output Total 0 ml Balance 650 ml Laboratory Data 24H LABS Laboratory Tests 2 04/04/19 17:16: Bedside Glucose (Misc Panel) 81 04/04/19 21:23: Bedside Glucose (Misc Panel) 114 04/05/19 06:24: Nucleated Red Blood Cells % (auto) 0.0, Anion Gap 7L, Glomerular Filtration Rate > 60.0, Blood Urea Nitrogen 13, Creatinine 0.88, Sodium Level 141, Potassium Level 3.7, Chloride Level 106, Carbon Dioxide Level 28, Calcium Level 9.6 04/05/19 11:45: Bedside Glucose (Misc Panel) 95 CBC/BMP Laboratory Tests 04/05/19 06:24 Red Blood Count 3.83 L, Mean Corpuscular Volume 81.7, Mean Corpuscular Hemoglobin 26.6 L, Mean Corpuscular Hemoglobin Concent 32.6, Red Cell Distribution Width 14.3, Calcium Level 9.6 Microbiology Microbiology 04/03/19 Blood Culture - Preliminary, Resulted No growth after 24 hours . All specim... 04/03/19 Blood Culture - Preliminary, Resulted No growth after 24 hours . All specim... 04/03/19 Blood Culture - Preliminary, Resulted No growth after 24 hours . All specim... Ever Merchant M.D. Apr 05, 2019 16:37
[2019-04-05] MEDS: ACETAMINOPHEN 650MG ER TAB (TYLENOL ARTHRITIS) PO PRN (20:43)
[2019-04-05] MEDS: ASPIRIN 81 MG ENTERIC TAB PO SCH (20:43)
[2019-04-05] MEDS: INDAPAMIDE 1.25MG TABLET PO SCH (20:43)
[2019-04-05 22:00] VITALS: BP 143/86
[2019-04-06] MEDS: ceFAZolin SOD 1 GM in D5W MINI-BAG PLUS 50 ML IV SCH ×3 (00:17→17:27)
[2019-04-06] MEDS: NORCO, ANEXSIA 5/325MG TABLET (HYDROcodone/ACETAMINOPHEN) PO PRN ×2 (04:40→20:25)
[2019-04-06 06:00] VITALS: BP 119/69
[2019-04-06 08:38] LABS: BASO % 0.6 % (0.0-1.0); EOS # 0.2 10^3/uL (0.0-0.5); EOS % 4.3 % (0.0-3.0); HEMATOCRIT 29.8 % (36.0-47.0); HEMOGLOBIN 9.7 g/dl (12.0-15.5); LYMPH # 1.9 10^3/uL (1.5-5.0); LYMPH % 39.8 % (24.0-44.0); MEAN CORPUSCULAR HEMOGLOBIN 26.4 pg (27.0-33.0); MEAN CORPUSCULAR HGB CONC 32.6 g/dl (32.0-36.5); MEAN CORPUSCULAR VOLUME 81.2 fl (80.0-96.0); MONO # 0.6 10^3/uL (0.0-0.8); MONO % 12.6 % (0.0-5.0); NEUTROPHILS % 42.3 % (36.0-66.0); PLATELET COUNT, AUTOMATED 150 10^3/uL (150-450); RED BLOOD COUNT 3.67 10^6/uL (4.00-5.40); WHITE BLOOD COUNT 4.7 10^3/uL (4.0-10.0)
[2019-04-06 09:00] LABS: ERYTHROCYTE SEDIMENTATION RATE 59 mm/hr (0-30)
[2019-04-06] MEDS: VITAMIN D 1,000 INTERNATIONAL UNITS TABLET PO SCH (09:13)
[2019-04-06] MEDS: OCUVITE 1 TAB PO SCH ×2 (09:13→20:25)
[2019-04-06] MEDS: FLUTICASONE PROP 0.05% NASAL SPRAY 16 GM (FLONASE) NARES SCH (09:13)
[2019-04-06] MEDS: ATORVASTATIN 20 MG TAB PO SCH (09:13)
[2019-04-06] MEDS: PANTOPRAZOLE 40MG TAB (PROTONIX) PO SCH ×2 (09:14→20:25)
[2019-04-06] MEDS: LEVOTHYROXINE 75MCG TABLET (0.075MG) PO SCH (09:14)
[2019-04-06] MEDS: busPIRone 5 MG TAB PO SCH ×2 (09:14→20:25)
[2019-04-06] MEDS: ENOXAPARIN 40 MG/0.4 ML SYRINGE (J1650) SC SCH (09:14)
[2019-04-06] MEDS: CYANOCOBALAMIN 500 MCG TAB PO SCH (09:14)
--- NOTE | 2019-04-06 20:12 | IPNPDOC ---
Subjective Date Seen The patient was seen on 04/06/19. Subjective Chief Complaint/HPI improved LLE r/t/c/d Constitutional: Denies: Chills, Fever Eyes: Denies: Pain ENT: Denies: Head Aches Pulmonary: Denies: Dyspnea, Cough Cardiovascular: Denies: Chest Pain, Palpitations Gastrointestinal: Denies: Nausea, Vomiting Genitourinary: Denies: Dysuria, Frequency Objective Physical Examination General Exam: Positive: Alert, No Acute Distress Chest Exam: Positive: Clear to auscultation, Normal air movement; Negative: Rales, Rhonchi, Wheezing Heart Exam: Positive: Rate Normal, Regular Rhythm Abdomen Exam: Positive: Normal bowel sounds, Soft; Negative: Tenderness Extremity Exam: Positive: Edema (2+ pedal edema left foot.), Other (Minimal erythema dorsum of foot. No warmth . Minimal tenderenss) Assessment /Plan Problems (1) Cellulitis of left foot Status: Acute Response to Treatment: Improving Problem Text: D3 cefazolin (failed outpx clinda po) 04/06 AF, WBC 4.7 (04/03 5.8), improved r/t/c/d, CRP/ESR 14/59 04/03 BCX3 NG 04/03 CRP/ESR 17/65 CT ankle: Diffuse subcutaneous edema most pronounced laterally at the distal lower leg, ankle, and foot associated with some skin thickening, findings which may indicate the presence of cellulitis. No focal abscess demonstrated. CT foot: Diffuse soft tissue edema demonstrated in the foot with skin thickening consistent with cellulitis. No focal abscess demonstrated (2) Diabetes type 2, controlled Status: Chronic Response to Treatment: Stable Problem Text: AC TID BG 80-100 on SSLI (off HD hayes 1.2) Plan/VTE VTE Prophylaxis Ordered?: Yes (Lovenox) VS, I&O, 24H, Fishbone Vital Signs/I&O Vital Signs Date Time Temp Pulse Resp B/P (MAP) Pulse Ox O2 Delivery O2 Flow Rate FiO2 04/06/19 06:00 98.4 70 18 119/69 (86) 95 04/03/19 15:42 Room Air I&O- Last 24 Hours up to 6 AM 04/06/19 05:59 Intake Total 590 ml Balance 590 ml Laboratory Data 24H LABS Laboratory Tests 2 04/05/19 21:15: Bedside Glucose (Misc Panel) 105 04/06/19 07:45: Immature Granulocyte % (Auto) 0.4, White Blood Count 4.7, Red Blood Count 3.67L, Hemoglobin 9.7L, Hematocrit 29.8L, Mean Corpuscular Volume 81.2, Mean Corpuscular Hemoglobin 26.4L, Mean Corpuscular Hemoglobin Concent 32.6, Red Cell Distribution Width 14.2, Platelet Count 150, Neutrophils (%) (Auto) 42.3, Lymphocytes (%) (Auto) 39.8, Monocytes (%) (Auto) 12.6H, Eosinophils (%) (Auto) 4.3H, Basophils (%) (Auto) 0.6, Neutrophils # (Auto) 2.0, Lymphocytes # (Auto) 1.9, Monocytes # (Auto) 0.6, Eosinophils # (Auto) 0.2, Basophils # (Auto) 0.0, Nucleated Red Blood Cells % (auto) 0.0, Erythrocyte Sedimentation Rate 59H, C- Reactive Protein, Quantitative 4.31H 04/06/19 07:59: Bedside Glucose (Misc Panel) 86 04/06/19 12:12: Bedside Glucose (Misc Panel) 96 04/06/19 17:29: Bedside Glucose (Misc Panel) 86 CBC/BMP Laboratory Tests 04/06/19 07:45 Red Blood Count 3.67 L, Mean Corpuscular Volume 81.2, Mean Corpuscular Hemogl obin 26.4 L, Mean Corpuscular Hemoglobin Concent 32.6, Red Cell Distribution Width 14.2, Neutrophils (%) (Auto) 42.3, Lymphocytes (%) (Auto) 39.8, Monocytes (%) (Auto) 12.6 H, Eosinophils (%) (Auto) 4.3 H, Basophils (%) (Auto) 0.6, Neutrophils # (Auto) 2.0, Lymphocytes # (Auto) 1.9, Monocytes # (Auto) 0.6, Eosinophils # (Auto) 0.2, Basophils # (Auto) 0.0 Microbiology Microbiology 04/03/19 Blood Culture - Preliminary, Resulted No Growth after 72 hours. All specime... 04/03/19 Blood Culture - Preliminary, Resulted No Growth after 72 hours. All specime... 04/03/19 Blood Culture - Preliminary, Resulted No Growth after 72 hours. All specime... vEer Merchant M.D. Apr 06, 2019 20:12
[2019-04-06] MEDS: INDAPAMIDE 1.25MG TABLET PO SCH (20:25)
[2019-04-06] MEDS: ASPIRIN 81 MG ENTERIC TAB PO SCH (20:25)
[2019-04-06 22:00] VITALS: BP 146/84
[2019-04-07] MEDS: ceFAZolin SOD 1 GM in D5W MINI-BAG PLUS 50 ML IV SCH ×2 (00:49→08:41)
[2019-04-07 06:00] VITALS: BP 138/78
[2019-04-07] MEDS: ATORVASTATIN 20 MG TAB PO SCH (08:41)
[2019-04-07] MEDS: ENOXAPARIN 40 MG/0.4 ML SYRINGE (J1650) SC SCH (08:41)
[2019-04-07] MEDS: LEVOTHYROXINE 75MCG TABLET (0.075MG) PO SCH (08:42)
[2019-04-07] MEDS: PANTOPRAZOLE 40MG TAB (PROTONIX) PO SCH (08:42)
[2019-04-07] MEDS: CYANOCOBALAMIN 500 MCG TAB PO SCH (08:42)
[2019-04-07] MEDS: VITAMIN D 1,000 INTERNATIONAL UNITS TABLET PO SCH (08:42)
[2019-04-07] MEDS: OCUVITE 1 TAB PO SCH (08:42)
[2019-04-07] MEDS: busPIRone 5 MG TAB PO SCH (08:42)
[2019-04-07] MEDS: NORCO, ANEXSIA 5/325MG TABLET (HYDROcodone/ACETAMINOPHEN) PO PRN (08:43)
[2019-04-07] MEDS: FLUTICASONE PROP 0.05% NASAL SPRAY 16 GM (FLONASE) NARES SCH (08:56)
[2019-04-07] MEDS ORDERED: CEFU50TA PO (11:11)
--- NOTE | 2019-04-07 11:34 | DSES ---
DATE OF ADMISSION: 04/03/2019 DATE OF DISCHARGE: 04/07/2019 PRIMARY CARE PROVIDER: Endy Garcia MD ATTENDING PHYSICIAN: Channing Shukla MD HISTORY OF PRESENT ILLNESS: A 68-year-old female who reported a suspected insect bite on her right ankle. Around the date of 03/29/2019, she had developed a fever and presented to [facility]. She was given Rocephin times one. Ultrasound ruled out a deep venous thrombosis (DVT) and sent home on clindamycin. The patient returned the next day due to difficulty walking and was sent home again from [facility]. She presented on 04/03/2019 to [facility] Emergency Department (ED) and was advised admission. HOSPITAL COURSE: The patient was placed on cephazolin intravenous (IV). She has tolerated that well. CT of the ankle and foot were negative for abscess but did confirm findings consistent with cellulitis. Diabetes management continued in the hospital with regular insulin sliding scale. Her blood sugars did remain stable throughout. The patient had an initial C-reactive protein of 17.3 on admission. She is down to 4.31 today. White blood cell count on admission 5000 and has remained stable throughout hospitalization. The patient's electrolytes have also remained stable throughout hospitalization. On physical examination today, vital signs are stable. She is afebrile. HEENT: Neck is supple without lymphadenopathy or jugular venous distention (JVD). Cardiovascular: Heart rate and rhythm are regular. Pulmonary: Lungs are clear. Abdomen: Soft and nontender. Left lower extremity ankle visualized where markings were present for cellulitis shows no erythema, inflammation inside the markings or outside. The patient does have positive pedal pulses bilaterally. She does have a small amount of pain on palpation along the lateral 5th metatarsal. ASSESSMENT: 1. Left lower extremity cellulitis of the foot. 2. Diabetes type 2. 3. Hypothyroidism. 4. Hypertension. 5. Gastroesophageal reflux disease (GERD). PLAN: The patient will be discharged to home. Diet is as tolerated. Activity is as tolerated. Medications are as follows: Cefuroxime 500 mg one by mouth twice a day, aspirin 81 mg by mouth nightly, atorvastatin 20 mg daily, buspirone 5 mg by mouth twice a day, vitamin D3 200 international units by mouth daily, vitamin B12 1000 mcg by mouth daily, Flonase two sprays to each nostril daily, hydrocodone with acetaminophen one tablet by mouth every 6 hours as needed for pain, indapamide 1.25 mg by mouth nightly, levothyroxine sodium 75 mcg by mouth daily, Victoza 1.2 mg subcutaneously daily, omeprazole 40 mg by mouth twice a day, PreserVision one capsule by mouth twice a day. The patient is discharged in stable and satisfactory condition with no further questions at time of discharge. [facility]
== END 2019-04-07 12:35 | disposition home or self-care (01) ==
LOC: M ED 15:42 → M ED INP 15:43 → UNDOADMOB 20:56 → M ED INP 20:56 → M MS5PR 22:51
PROVIDERS: ADMIT Family Medicine; ATTEND Family Medicine
DX: L03.116 Cellulitis of left lower limb (principal); E11.9 Type 2 diabetes mellitus without complications; E03.9 Hypothyroidism, unspecified; I10 Essential (primary) hypertension; K21.9 Gastro-esophageal reflux disease without esophagitis; R26.2 Difficulty in walking, not elsewhere classified; I97.2 Postmastectomy lymphedema syndrome; E66.9 Obesity, unspecified; Z68.35 Body mass index [BMI] 35.0-35.9, adult; M51.9 Unspecified thoracic, thoracolumbar and lumbosacral intervertebral disc disorder; Z95.2 Presence of prosthetic heart valve; Z79.899 Other long term (current) drug therapy; Z79.2 Long term (current) use of antibiotics; Z79.82 Long term (current) use of aspirin; Z79.84 Long term (current) use of oral hypoglycemic drugs; Z85.3 Personal history of malignant neoplasm of breast; Z92.3 Personal history of irradiation; Z86.79 Personal history of other diseases of the circulatory system; Z88.2 Allergy status to sulfonamides
CPT/HCPCS: 36415; 73701; 80048; 85025; 85027; 85652; 86140; 87040; 93005; 96361; 96365; 96366; 96372; 96376; 97116; 97161; 97530; 99284; G0378; J0690; J1650; J2270; Q9967

== ENCOUNTER → 2019-05-13 | Outpatient (REF) | payer MEDICARE, BC, OTHER ==
[~2019-05-13] MED LIST changes: +ASPI81CH10; +ASPI81TA85 PO; +ATOR1TAB21 PO; +B-12100010 PO; +BUSP5TA PO; +CEFU50TA PO; +CLIN300C5 PO; +D3 H10002 PO; +FLUTISP NARES; +HYDR-3713 PO; +INDA125TA PO; +OMEP-221 PO; +PRESCAP PO; +SYNT75TA PO; +VICT18IN2 SC
== END ==
LOC: M SFHCADAM 16:33
PROVIDERS: ATTEND Family Medicine
DX: R30.0 Dysuria (principal); Z23 Encounter for immunization
CPT/HCPCS: 87086; 90682; G0008; G0463

== ENCOUNTER → 2019-11-19 | Outpatient (REF) | payer MEDICARE, OTHER, BC ==
[2019-11-19 14:07] LABS: ALT/SGPT 29 U/L (12-78); BILIRUBIN,TOTAL 0.5 MG/DL (0.2-1.0); BLOOD UREA NITROGEN 17 MG/DL (7-18); CALCIUM LEVEL 10.3 MG/DL (8.8-10.2); CARBON DIOXIDE LEVEL 32 MEQ/L (21-32); CHLORIDE LEVEL 106 MEQ/L (98-107); CHOLESTEROL LEVEL 144 MG/DL (<200); CHOLESTEROL RISK RATIO 2.618 (<5); CREATININE FOR GFR 0.88 MG/DL (0.55-1.30); FREE T4 1.07 NG/DL (0.76-1.46); GLOMERULAR FILTRATION RATE > 60.0 (>45); GLUCOSE, FASTING 82 MG/DL (70-100); HDL CHOLESTEROL 55 MG/DL (>40); LDL CHOLESTEROL 65 MG/DL (<100); NON-HDL-C 89 MG/DL; POTASSIUM SERUM 4.1 MEQ/L (3.5-5.1); SODIUM LEVEL 143 MEQ/L (136-145); TOTAL PROTEIN 6.7 GM/DL (6.4-8.2); TRIGLYCERIDES LEVEL 118 MG/DL (<150)
[2019-11-19 14:09] LABS: HEMATOCRIT 41.5 % (36.0-47.0); HEMOGLOBIN 13.4 g/dl (12.0-15.5); MEAN CORPUSCULAR HEMOGLOBIN 27.7 pg (27.0-33.0); MEAN CORPUSCULAR HGB CONC 32.3 g/dl (32.0-36.5); MEAN CORPUSCULAR VOLUME 85.7 fl (80.0-96.0); PLATELET COUNT, AUTOMATED 275 10^3/uL (150-450); RED BLOOD COUNT 4.84 10^6/uL (4.00-5.40); WHITE BLOOD COUNT 6.6 10^3/uL (4.0-10.0)
[2019-11-19 14:39] LABS: HEMOGLOBIN A1c 5.7 %
== END ==
LOC: M SFHCADAM 10:06
PROVIDERS: ATTEND Family Medicine
DX: D64.9 Anemia, unspecified (principal); E11.9 Type 2 diabetes mellitus without complications; E03.9 Hypothyroidism, unspecified; E78.2 Mixed hyperlipidemia